=== PATIENT | female | born 1990 | race Caucasian/White ===

== ENCOUNTER 2018-05-01 05:42 | Emergency (ER) | payer OTHER ==
[2018-05-01] MEDS: KETOROLAC 30 MG INJ IM (06:40)
[2018-05-01 06:44] LABS: ADD MAN DIFF? NO
[2018-05-01 06:46] LABS: WHITE BLOOD COUNT 7.8 10^3/ul (4.8-10.8)
[2018-05-01 06:46] LABS: BASOPHILS % 0.5 % (0.0-2.0); EOSINOPHILS # 0.4 10^3/ul (0.0-0.5); EOSINOPHILS % 4.6 % (0.0-7.0); HEMOGLOBIN 12.9 g/dl (12.0-16.0); LYMPHOCYTES # 2.3 10^3/ul (0.8-2.9); LYMPHOCYTES % 29.3 % (15.0-51.0); MEAN CORPUSCULAR HEMOGLOBIN 30.9 pg (29.0-33.0); MEAN CORPUSCULAR HGB CONC 33.9 g/dl (32.0-37.0); MEAN CORPUSCULAR VOLUME 91.1 fl (82.0-101.0); MEAN PLATELET VOLUME 11.4 fl (7.4-10.4); MONOCYTE # 0.8 10^3/ul (0.3-0.9); MONOCYTES % 9.7 % (0.0-11.0); NEUTROPHIL # 4.3 10^3/ul (1.6-7.5); NEUTROPHILS % 55.5 % (39.0-77.0); PLATELET COUNT 166 10^3/UL (140-415); RED BLOOD COUNT 4.17 10^6/ul (4.20-5.40)
[2018-05-01 07:06] LABS: ALANINE AMINOTRANSFERASE 40 IU/L (13-69); ALBUMIN 3.9 g/dl (3.3-4.9); ALBUMIN/GLOBULIN RATIO 1.39; ALKALINE PHOSPHATASE 91 IU/L (42-121); ANION GAP 10 (5-13); ASPARTATE AMINO TRANSFERASE 51 IU/L (15-46); BILIRUBIN,INDIRECT 0.2 mg/dl (0-1.1); BILIRUBIN,TOTAL 0.2 mg/dl (0.2-1.3); BLOOD UREA NITROGEN 10 mg/dl (7-20); CALCIUM 9.2 mg/dl (8.4-10.2); CARBON DIOXIDE 25 mmol/L (21-31); CHLORIDE 106 mmol/L (97-110); CREATININE 0.59 mg/dl (0.44-1.00); Estimated GFR > 60 mL/min (>60); GLUCOSE 101 mg/dl (70-220); LIPASE 75 U/L (23-300); POTASSIUM 3.7 mmol/L (3.5-5.1); SODIUM 141 mmol/L (135-144); TOTAL PROTEIN 6.7 g/dl (6.1-8.1)
[2018-05-01 07:11] LABS: ADD UMIC YES; UR ASCORBIC ACID NEGATIVE (NEGATIVE); UR BACTERIA FEW /HPF (NONE SEEN); UR BILIRUBIN (Dip) NEGATIVE (NEGATIVE); UR BLOOD (Dip) 1+ mg/dL (NEGATIVE); UR CLARITY SLIGHTLY CLOUDY (CLEAR); UR COLOR YELLOW (YELLOW); UR GLUCOSE (Dip) NEGATIVE (NEGATIVE); UR KETONES (Dip) NEGATIVE (NEGATIVE); UR LEUKOCYTE ESTERASE (Dip) 1+ Leu/ul (NEGATIVE); UR NITRITE (Dip) NEGATIVE (NEGATIVE); UR RBC 2 /HPF (0-5); UR SPECIFIC GRAVITY (Dip) 1.009 (1.003-1.030); UR SQUAMOUS EPITHELIAL CELL FEW /HPF (FEW); UR TOTAL PROTEIN (Dip) NEGATIVE (NEGATIVE); UR UROBILINOGEN (Dip) NEGATIVE (NEGATIVE); UR WBC 4 /HPF (0-5)
== END 2018-05-01 08:10 | disposition home or self-care (01) ==
LOC: FTE 05:42
DX: K80.20 Calculus of gallbladder without cholecystitis without obstruction (principal)
CPT/HCPCS: 36415; 76705; 80053; 81001; 81025; 83690; 85025; 96372; 99285-25

== ENCOUNTER 2018-07-19 12:34 | Day surgery (SDC) | payer OTHER ==
[2018-07-19] MEDS: SOD CHLORIDE 0.9% 1,000 ML IV (14:00)
[2018-07-19] MEDS: CEFAZOLIN 2 GM/50 ML (PMX) 50 ML IVPB (14:00)
[2018-07-19] MEDS ORDERED: MIDAZOLAM 1 MG/ML 2 ML INJ (14:52)
[2018-07-19] MEDS: BUPIVACAINE 0.5%/EPI (SDV) 30 ML INJ (15:15)
[2018-07-19] MEDS ORDERED: ONDANSETRON 4 MG INJ (16:30)
[2018-07-19] MEDS ORDERED: GLYCOPYRROLATE 0.4 MG INJ (16:30)
[2018-07-19] MEDS ORDERED: morphine 2 MG INJ IV (16:30)
[2018-07-19] MEDS ORDERED: HYDROCODONE/APAP (5/325) TAB PO (16:30)
[2018-07-19] MEDS ORDERED: LIDOCAINE 2% (SDV) 5 ML INJ (16:30)
[2018-07-19] MEDS ORDERED: PROPOFOL 20 ML (16:30)
[2018-07-19] MEDS ORDERED: ONDANSETRON 4 MG INJ IV (16:30)
[2018-07-19] MEDS ORDERED: NEOSTIGMINE 10 MG INJ (16:30)
[2018-07-19] MEDS ORDERED: ROCURONIUM 50 MG INJ (16:30)
[2018-07-19] MEDS ORDERED: CEFAZOLIN 1 GM INJ (16:34)
[2018-07-19] MEDS ORDERED: FENTAnyl 50 MCG/ML VIAL (16:43)
[2018-07-19] MEDS: FENTAnyl 50 MCG/ML VIAL IV (16:51)
[2018-07-19] MEDS: ONDANSETRON 4 MG INJ IV (16:52)
[2018-07-19] MEDS ORDERED: MEPERIDINE 25 MG INJ IV (17:00)
[2018-07-19] MEDS ORDERED: DIPHENHYDRAMINE 50 MG INJ IV (17:00)
[2018-07-19] MEDS ORDERED: METOCLOPRAMIDE 10 MG INJ IV (17:00)
[2018-07-19] MEDS ORDERED: HYDROmorphONE 1 MG/5 ML IV SYRINGE IV (17:00)
[2018-07-19] MEDS: HYDROmorphONE 1 MG/5 ML IV SYRINGE IV (17:22)
[2018-07-19] MEDS: HYDROCODONE/APAP (5/325) TAB PO (18:17)
== END 2018-07-19 18:38 | disposition home or self-care (01) ==
LOC: SDS 12:34
DX: K80.10 Calculus of gallbladder with chronic cholecystitis without obstruction (principal); E78.5 Hyperlipidemia, unspecified; E66.01 Morbid (severe) obesity due to excess calories; Z68.36 Body mass index [BMI] 36.0-36.9, adult
CPT/HCPCS: 47562; 84703; 88304

== ENCOUNTER 2019-01-02 07:28 | Emergency (ER) | payer OTHER ==
[2019-01-02] MEDS: DEXAMETHASONE 10 MG/ML 1 ML INJ IM (08:09)
[2019-01-02] MEDS: IBUPROFEN 800 MG TAB PO (08:09)
== END 2019-01-02 08:23 | disposition home or self-care (01) ==
LOC: FTE 08:23
DX: J03.90 Acute tonsillitis, unspecified (principal); F17.210 Nicotine dependence, cigarettes, uncomplicated; J02.9 Acute pharyngitis, unspecified
CPT/HCPCS: 96372; 99284-25